=== PATIENT | male | born 1960 | race Caucasian/White ===

== ENCOUNTER 2020-05-07 12:55 | Emergency (ER) | payer OTHER, MEDICARE ==
[~2020-05-07] VITALS: Ht 170.2 cm; Wt 99.8 kg
[~2020-05-07 12:55] MED LIST: ALBU90OI INH; ALPR.5 PO; ATOR80 PO; Aspir 8181 MG PO; BASAGLAR K100 UNIT/1; BASAGLAR K100 UNIT/1 SC; CLOT10 MT; DEXT40GEL PO; DULO30 PO; FURO20 PO; HYDCHL25 PO; LIDO700A20 TOP; LISI5 PO; METF500 PO; Norco 10-325 T1 EACH PO; Vitamin D2000 UNIT PO
[2020-05-07] MEDS ORDERED: DULO30 PO (16:38)
[2020-05-07] MEDS ORDERED: LISI5 PO (16:40)
[2020-05-07] MEDS ORDERED: Ropinirole HCl2 MG PO (16:40)
[2020-05-07] MEDS ORDERED: JARDIANCE25 MG PO (16:40)
[2020-05-07] MEDS ORDERED: Norco 10-325 T1 EACH PO (16:40)
[2020-05-07] MEDS ORDERED: FURO20 PO (16:41)
[2020-05-07] MEDS ORDERED: ALBU90OI INH (16:41)
[2020-05-07] MEDS ORDERED: SPIRIVA RESPIMAT4 G3 INH (16:41)
[2020-05-07] MEDS ORDERED: ATOR80 PO (16:41)
[2020-05-07] MEDS ORDERED: GLUCOPHAGE1000 M1 PO (16:42)
[2020-05-07] MEDS ORDERED: POTA10T PO (16:42)
[2020-05-07] MEDS ORDERED: OMEP20ER PO (16:42)
[2020-05-07] MEDS ORDERED: Isosorbide Mono30 MG PO (16:43)
[2020-05-07] MEDS ORDERED: Vitamin D2000 UNIT PO (16:43)
[2020-05-07] MEDS ORDERED: METO50ER PO (16:43)
[2020-05-07] MEDS ORDERED: NOVOLOG FL100 UNIT/3 SC (16:43)
== END 2020-05-07 18:00 | disposition short-term general hospital (02) ==
LOC: ER 12:55
DX: S82.142A Displaced bicondylar fracture of left tibia, initial encounter for closed fracture (principal); S92.061A Displaced intraarticular fracture of right calcaneus, initial encounter for closed fracture; F17.210 Nicotine dependence, cigarettes, uncomplicated; Z79.899 Other long term (current) drug therapy; Z79.82 Long term (current) use of aspirin; Z79.4 Long term (current) use of insulin; Z88.8 Allergy status to other drugs, medicaments and biological substances; Z20.828 Contact with and (suspected) exposure to other viral communicable diseases; W11.XXXA Fall on and from ladder, initial encounter
CPT/HCPCS: 71045; 73562-LT; 73610; 73700; 73701; 82947; 93306; 96361; 96374; 96375; 96376; 99285-25; A9270-GY; J1170; J2270; J7030; Q9967; U0002